=== PATIENT | male | born 1945 | race Caucasian/White ===

== ENCOUNTER 2019-12-04 09:41 | Outpatient (CLI) | payer MEDICARE ==
--- NOTE | 2019-12-04 13:46 | MRI ---
LUMBAR SPINE MRI WITHOUT IV CONTRAST: Date: 12/04/2019 HISTORY: Lumbar region spinal stenosis. Right hip pain for several weeks. TECHNIQUE: Multiplanar, multisequence MRI examination of the lumbar spine is performed. There are some leftward scoliotic changes. There is very severe hydronephrosis with dilatation of bot h right and left renal upper collecting systems and ureters all the way down to a markedly distended urinary bladder. Generalized disc desiccation changes and ligament and facet hypertrophic changes. No evidence for acu te abnormal marrow edema. T12-L1: Mild lateral recess stenosis. Mild disc osteophytosis at T11-T12. L1-L2: Mild bilateral recess and bilateral foraminal stenosis. L2-L3: Mild bilateral recess stenosis. L3-L4: Mild anterolisthesis with mild central canal and moderate bilateral recess stenosis and bilat eral foraminal stenosis. L4-L5: Right posterolateral annular fissure. Mild indention of the ventral thecal sac and borderline narrowing of the lateral recesses bilaterally. L5-S1: Unremarkable. IMPRESSION: 1. Very markedly dilated right and left renal upper collecting systems and ureters, evidence for mar ked bilateral hydroureteronephrosis with a very markedly distended urinary bladder. 2 Multilevel variable severity mostly lateral recess and foraminal stenosis, most marked at L3-L4 wi th mild anterolisthesis. CODE T. POS: ERMIAS
== END 2019-12-04 09:42 | disposition home or self-care (01) ==
LOC: SCSMRI 09:41
PROVIDERS: ATTEND Orthopaedic Surgery
DX: M48.061 Spinal stenosis, lumbar region without neurogenic claudication (principal); N13.30 Unspecified hydronephrosis; N32.89 Other specified disorders of bladder; M43.16 Spondylolisthesis, lumbar region; N28.89 Other specified disorders of kidney and ureter
CPT/HCPCS: 72148

== ENCOUNTER 2021-04-08 08:21 | Outpatient (CLI) | payer MEDICARE ==
[2021-04-08 10:35] LABS: #Basophils 0.1 10x3/uL (0.0-0.2); #Eosinphils 0.4 10x3/uL (0.0-0.5); #Monocytes 1.1 10x3/uL (0.0-1.1); #Neutrophils 5.8 10x3/uL (1.5-8.4); %Basophils 0.6 % (0.0-2.0); %Lymphocytes 20.6 % (18.0-47.0); %Monocytes 11.7 % (0.0-10.0); %Neutrophils 62.7 % (40.0-75.0); Hemoglobin 12.7 g/dL (13.5-17.5); Mean Corpuscular HGB CONC 32.8 g/dL (32.0-36.0); Mean Corpuscular Hemoglobin 31.1 pg (27.0-33.0); Mean Corpuscular Volume 94.9 fl (81.2-95.1); Mean Platelet Volume 9.7 fl (7.4-10.4); Platelet Count 308 10x3/uL (150-450); Red Blood Cell (RBC) Count 4.08 10x6/uL (4.32-5.72); White Blood Cell (WBC) Count 9.3 10x3/uL (3.5-10.5)
[2021-04-08 10:37] LABS: Anion Gap 17 mmol/L (10-20); BUN (Urea Nitrogen) 20 mg/dL (8.4-25.7); Calc. Creatinine Clearance 0 mL/min (70-130); Calcium 9.3 mg/dL (7.8-10.44); Carbon Dioxide 24 mmol/L (23-31); Chloride 103 mmol/L (98-107); Glucose 93 mg/dL (83-110); Potassium 4.5 mmol/L (3.5-5.1); Sodium 139 mmol/L (136-145)
[2021-04-08 10:46] LABS: INR-International Normal Ratio 0.9; Prothrombin Time 10.5 sec (9.5-12.1)
[2021-04-08 22:39] LABS: SARS-CoV-2 PCR by NAA DETECTED (NotDetected)
== END 2021-04-08 08:22 | disposition home or self-care (01) ==
LOC: LABBT 08:21
PROVIDERS: ATTEND Orthopaedic Surgery
DX: Z01.818 Encounter for other preprocedural examination (principal); M17.12 Unilateral primary osteoarthritis, left knee; U07.1 COVID-19
CPT/HCPCS: 80048; 85025; 85610; 87081; 93005; U0003; U0005; 93010